=== PATIENT | female | born 1995 | race Caucasian/White ===

== ENCOUNTER → 2018-03-17 | Outpatient (CLI) | payer BC ==
--- NOTE | 2018-03-17 10:22 | CT ---
EXAMINATION TYPE: CT brain wo con DATE OF EXAM: 03/17/2018 COMPARISON: CT brain June 23, 2016 HISTORY: 2 episodes of syncope, ESPINO CT DLP: 1106 mGycm. Automated Exposure Control for Dose Reduction was Utilized. TECHNIQUE: CT scan of the head is performed without contrast. FINDINGS: There is no acute intracranial hemorrhage, mass effect, or midline shift identified. The ventricles and sulci are within normal limits in size. 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 The globes are intact and the visualized sinuses are clear. Stable slightly low position of cerebell ar tonsils without greater than 5 mm inferior displacement. IMPRESSION: No acute intracranial hemorrhage or midline shift is seen. No significant change from pr ior CT.
== END | disposition home or self-care (01) ==
LOC: RADCTMAIN 09:11
PROVIDERS: ATTEND Pediatrics
DX: R51 Headache (principal)
CPT/HCPCS: 70450

== ENCOUNTER 2021-03-23 07:53 | Observation (INO) | payer BC ==
[2021-03-23] MEDS ORDERED: SODIUM CHLORIDE 0.9% 500 ML 500 ML IV STA (08:22)
--- NOTE | 2021-03-23 08:29 | ED ---
General Adult HPI - General Chief complaint: Abdominal Pain Stated complaint: Abd Pain Time Seen by Provider: 03/23/21 08:00 Source: patient, RN notes reviewed, old records reviewed Mode of arrival: ambulatory Limitations: no limitations - History of Present Illness Initial comments: This is a 25-year-old female who presents emergency Department complaining of abdominal pain lasted 3 days. Patient states she's had no nausea no vomiting no diarrhea. Patient states she's eating normally. Patient states her last menstrual period was about a month ago and she is on contraception. Patient states the pain is in the right lower quadrant and then the mid epigastric region. Patient states often during the day shows even notice it when she stops thinks about this. Patient denies any fever or chills. Patient denies any back pain. Patient isn't dysuria hematuria urinary frequency per patient denies any chest pain difficult breathing shortest breath. Patient does have COVID vaccine. - Related Data Home Medications Medication Instructions Recorded Confirmed Ascorbic Acid [Vitamin C] 500 mg PO DAILY 03/23/21 03/23/21 Cetirizine HCl [Zyrtec] 10 mg PO DAILY 03/23/21 03/23/21 Fluticasone Nasal [place] [Flonase 1 spr EA NOSTRIL DAILY 03/23/21 03/23/21 Nasal [place]] [place] 1 tab PO DAILY 03/23/21 03/23/21 Multivitamins, Thera [Multivitamin 1 tab PO DAILY 03/23/21 03/23/21 (formulary)] Allergies Allergy/AdvReac Type Severity Reaction Status Date / Time Penicillins Allergy Unknown Verified 03/23/21 08:56 Review of Systems ROS Statement: Those systems with pertinent positive or pertinent negative responses have been documented in the HPI. ROS Other: All systems not noted in ROS Statement are negative. 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 14 History of Any Multi-Drug Resistant Organisms: None Reported Past Surgical History: Orthopedic Surgery Past Psychological History: No Psychological Hx Reported Smoking Status: Never smoker Past Alcohol Use History: None Reported Past Drug Use History: None Reported General Exam - General Exam Comments Initial Comments: GENERAL: Patient is well-developed and well-nourished. Patient is nontoxic and well-h ydrated and is in mild distress. ENT: Neck is soft and supple. No significant lymphadenopathy is noted. Oropharynx is clear. Moist mucous membranes. Neck has full range of motion without eliciting any pain. EYES: The sclera were anicteric and conjunctiva were pink and moist. Extraocular move ments were intact and pupils were equal round and reactive to light. Eyelids were unremarkable. PULMONARY: Unlabored respirations. Good breath sounds bilaterally. No audible rales rhonchi or wheezing was noted. CARDIOVASCULAR: There is a regular rate and rhythm without any murmurs gallops or rubs. ABDOMEN: Soft and nontender with normal bowel sounds. SKIN: Skin is clear with no lesions or rashes and otherwise unremarkable. NEUROLOGIC: Patient is alert and oriented x3. Cranial nerves II through XII are grossly intact. Motor and sensory are also intact. Normal speech, volume and content. Symmetrical smile. MUSCULOSKELETAL: Normal extremities with adequate strength and full range of motion. No lower extremity swelling or edema. No calf tenderness. LYMPHATICS: No significant lymphadenopathy is noted PSYCHIATRIC: Normal psychiatric evaluation. Limitations: no limitations Course Vital Signs 03/23/21 08:03 Temperature 98.1 F Pulse Rate 75 Respiratory 18 Rate Blood Pressure 144/93 O2 Sat by Pulse 100 Oximetry Medical Decision Making - Medical Decision Making An appendicolith and some thickening of the appendix with some minimal stranding could be early appendicitis. Patient still has right lower quadrant abdominal pain. I spoke with Dr. Lan he agreed to admit the patient to the patient wrote admitting orders. - Lab Data Result diagrams: 03/23/21 08:56 03/23/21 08:56 Lab Results 03/23/21 03/23/21 03/23/21 Range/Units 08:56 08:56 08:56 WBC 5.8 (3.8-10.6) k/uL RBC 4.60 (3.80-5.40) m/uL Hgb 14.5 (11.4-16.0) gm/dL Hct 39.0 (34.0-46.0) % MCV 84.7 (80.0-100.0) fL MCH 31.6 (25.0-35.0) pg MCHC 37.2 H (31.0-37.0) g/dL RDW 12.2 (11.5-15.5) % Plt Count 270 (150-450) k/uL MPV 7.1 Neutrophils % 73 % Lymphocytes % 17 % Monocytes % 6 % Eosinophils % 2 % Basophils % 0 % Neutrophils # 4.2 (1.3-7.7) k/uL Lymphocytes # 1.0 (1.0-4.8) k/uL Monocytes # 0.3 (0-1.0) k/uL Eosinophils # 0.1 (0-0.7) k/uL Basophils # 0.0 (0-0.2) k/uL Hyperchromasia Slight Sodium (137-145) mmol/L Potassium (3.5-5.1) mmol/L Chloride (98-107) mmol/L Carbon Dioxide (22-30) mmol/L Anion Gap mmol/L BUN (7-17) mg/dL Creatinine (0.52-1.04) mg/dL Est GFR (CKD-EPI)AfAm (>60 ml/min/1.73 sqM) Est GFR (CKD-EPI)NonAf (>60 ml/min/1.73 sqM) Glucose (74-99) mg/dL Calcium (8.4-10.2) mg/dL Total Bilirubin (0.2-1.3) mg/dL AST (14-36) U/L ALT (4-34) U/L Alkaline Phosphatase (38-126) U/L Total Protein (6.3-8.2) g/dL Albumin (3.5-5.0) g/dL Amylase (30-110) U/L Lipase (23-300) U/L Urine Color Colorless Urine Appearance Clear (Clear) Urine pH 6.0 (5.0-8.0) Ur Specific [place] 1.007 (1.001-1.035) Urine Protein Negative (Negative) Urine Glucose (UA) Negative (Negative) Urine Ketones Negative (Negative) Urine Blood Negative (Negative) Urine Nitrite Negative (Negative) Urine Bilirubin Negative (Negative) Urine Urobilinogen <2.0 (<2.0) mg/dL Ur Leukocyte Esterase Trace H (Negative) Urine RBC <1 (0-5) /hpf Urine WBC 2 (0-5) /hpf Ur Squamous Epith Cells 4 (0-4) /hpf Urine Bacteria Occasional H (None) /hpf Urine HCG, Qual Not Detected (Not Detectd) 03/23/21 Range/Units 08:56 WBC (3.8-10.6) k/uL RBC (3.80-5.40) m/uL Hgb (11.4-16.0) gm/dL Hct (34.0-46.0) % MCV (80.0-100.0) fL MCH (25.0-35.0) pg MCHC (31.0-37.0) g/dL RDW (11.5-15.5) % Plt Count (150-450) k/uL MPV Neutrophils % % Lymphocytes % % Monocytes % % Eosinophils % % Basophils % % Neutrophils # (1.3-7.7) k/uL Lymphocytes # (1.0-4.8) k/uL Monocytes # (0-1.0) k/uL Eosinophils # (0-0.7) k/uL Basophils # (0-0.2) k/uL Hyperchromasia Sodium 138 (137-145) mmol/L Potassium 3.8 (3.5-5.1) mmol/L Chloride 107 (98-107) mmol/L Carbon Dioxide 22 (22-30) mmol/L Anion Gap 9 mmol/L BUN 8 (7-17) mg/dL Creatinine 0.53 (0.52-1.04) mg/dL Est GFR (CKD-EPI)AfAm >90 (>60 ml/min/1.73 sqM) Est GFR (CKD-EPI)NonAf >90 (>60 ml/min/1.73 sqM) Glucose 95 (74-99) mg/dL Calcium 9.1 (8.4-10.2) mg/dL Total Bilirubin 0.3 (0.2-1.3) mg/dL AST 23 (14-36) U/L ALT 14 (4-34) U/L Alkaline Phosphatase 69 (38-126) U/L Total Protein 6.4 (6.3-8.2) g/dL Albumin 3.8 (3.5-5.0) g/dL Amylase 56 (30-110) U/L Lipase 82 (23-300) U/L Urine Color Urine Appearance (Clear) Urine pH (5.0-8.0) Ur Specific [place] (1.001-1.035) Urine Protein (Negative) Urine Glucose (UA) (Negative) Urine Ketones (Negative) Urine Blood (Negative) Urine Nitrite (Negative) Urine Bilirubin (Negative) Urine Urobilinogen (<2.0) mg/dL Ur Leukocyte Esterase (Negative) Urine RBC (0-5) /hpf Urine WBC (0-5) /hpf Ur Squamous Epith Cells (0-4) /hpf Urine Bacteria (None) /hpf Urine HCG, Qual (Not Detectd) Disposition Clinical Impression: Abdominal pain Disposition: ADMITTED IP TO THIS HOSP Referrals: Hammad Ontiveros MD [Primary Care Provider] - 1-2 days Time of Disposition: 10:26
[2021-03-23 09:10] LABS: Basophils % (A) 0 %; Eosinophils # (A) 0.1 k/uL (0-0.7); Eosinophils % (A) 2 %; HGB 14.5 gm/dL (11.4-16.0); Hyperchromasia Slight; Lymphocytes % (A) 17 %; MCH 31.6 pg (25.0-35.0); MCHC 37.2 g/dL (31.0-37.0); MCV 84.7 fL (80.0-100.0); Mean Platelet Volume 7.1; Monocytes # (A) 0.3 k/uL (0-1.0); Monocytes % (A) 6 %; Neutrophils # (A) 4.2 k/uL (1.3-7.7); Neutrophils % (A) 73 %; Platelet Count 270 k/uL (150-450); RDW 12.2 % (11.5-15.5); WBC 5.8 k/uL (3.8-10.6)
[2021-03-23 09:18] LABS: Appearance,Urine Clear (Clear); Bacteria,Urine Occasional /hpf; Bilirubin,Urine Negative (Negative); Blood,Urine Negative (Negative); Color,Urine Colorless; Glucose,Urine (UA) Negative (Negative); Ketones,Urine Negative (Negative); Leukocyte Esterase,Urine Trace (Negative); Nitrite,Urine Negative (Negative); Protein,Urine Negative (Negative); RBC,Urine <1 /hpf (0-5); Specific Gravity,Urine 1.007 (1.001-1.035); Squamous Epithelial Cell,Urine 4 /hpf (0-4); Urobilinogen,Urine <2.0 mg/dL (<2.0); WBC,Urine 2 /hpf (0-5)
[2021-03-23 09:25] LABS: ALT 14 U/L (4-34); AST 23 U/L (14-36); African American GFR (CKD) >90 (>60 ml/min/1.73 sqM); Albumin 3.8 g/dL (3.5-5.0); Alkaline Phosphatase 69 U/L (38-126); Amylase 56 U/L (30-110); Anion Gap 9 mmol/L; Blood Urea Nitrogen 8 mg/dL (7-17); Calcium 9.1 mg/dL (8.4-10.2); Carbon Dioxide 22 mmol/L (22-30); Chloride 107 mmol/L (98-107); Glucose 95 mg/dL (74-99); Lipase 82 U/L (23-300); Non-African American GFR(CKD) >90 (>60 ml/min/1.73 sqM); Potassium 3.8 mmol/L (3.5-5.1); Sodium 138 mmol/L (137-145); Total Bilirubin 0.3 mg/dL (0.2-1.3); Total Protein 6.4 g/dL (6.3-8.2)
--- NOTE | 2021-03-23 10:09 | CT ---
EXAMINATION TYPE: CT abdomen pelvis w con DATE OF EXAM: 03/23/2021 COMPARISON: NONE HISTORY: 25 year-old female right lower quadrant abdominal pain TECHNIQUE: Contiguous axial scanning of the abdomen and pelvis following administration of 100 ml Iso j luis 300 IV contrast. Delayed images through the kidneys and coronal/sagittal reconstructions perform ed. CT DLP: 776.3 mGycm Automated exposure control for dose reduction was used. FINDINGS: Heart normal size without pericardial effusion. Lung bases clear without pleural effusion. Liver mildly enlarged at 19.1 cm. No focal lesion. No biliary ductal dilatation. Portal venous system is patent. The gallbladder, adrenal glands, right kidney, and pancreas within normal limits. Spleen upper limits of normal in size at 13.3 cm measured on coronal series. Posterior splenule noted . Extrarenal pelvis left kidney but with symmetric uptake and excretion of contrast from both kidneys. Nonobstructive 4 mm left renal calculus. No dilated small bowel, free fluid, or free air. No mesenteric or retroperitoneal lymphadenopathy. There is an 8 mm distal appendicolith noted. Very mild thickening of the appendix at 7 mm but without roshni fluid distention. Minimal adjacent fat stranding versus prominent vessels may be present. Mild ly enlarged right lower quadrant mesenteric lymph nodes measuring up to 1.1 cm, refer to coronal imag e 35. Moderate fatty stool within the sigmoid colon. No pericolonic inflammatory change. Bladder urine distended. Uterus anteverted. Right ovary not well seen. Left ovary is visualized with follicular change. Trace cul-de-sac free fluid likely physiologic. No pelvic lymphadenopathy seen. Bones: No osseous destructive process. IMPRESSION: 1. EXAM EQUIVOCAL FOR MILD/EARLY ACUTE APPENDICITIS. THERE IS AN 8 MM APPENDICOLITH AND MINIMAL THICK ENING OF THE APPENDIX UP TO 7 MM BUT WITHOUT ANY FLUID DISTENTION. MINIMAL ADJACENT FAT STRANDING TAZ JEWEL PROMINENT VESSELS. PROMINENT VESSELS ARE FAVORED OVER INFLAMMATION. CLINICAL FOLLOW-UP IS RECOMME NDED. 2. THERE ARE CLUSTERED MILDLY ENLARGED RIGHT LOWER QUADRANT MESENTERIC LYMPH NODES MEASURING UP TO 1. 1 CM THAT CAN BE SEEN WITH MESENTERIC ADENITIS. 3. MILD HEPATOMEGALY AT 19.1 CM.
[2021-03-23] MEDS ORDERED: LEVOFLOXACIN 750MG-D5W PMX 750 MG in DEXTROSE/WATER 1 150ML.BAG IVPB STA (10:30)
[2021-03-23] MEDS ORDERED: SODIUM CHLORIDE 0.9% 1,000 ML IV ONE (10:35)
[2021-03-23] MEDS: metroNIDAZOLE-NS PMX 500 MG in SALINE 1 100ML.BAG IVPB SCH ×3 (12:38→23:13)
[2021-03-23] MEDS ORDERED: HYDROmorphone 0.5 MG/0.5 ML SYRINGE IVP PRN (15:16)
--- NOTE | 2021-03-23 15:17 | P.GSHP ---
History of Present Illness H&P Date: 03/23/21 CHIEF COMPLAINT: Abdominal pain HISTORY OF PRESENT ILLNESS: This is a 25-year-old female who presented to the hospital with complaints of right lower quadrant pain for the last 3 days. She reports over the weekend her pain continued to worsen. She denies any nausea or vomiting. She reports a decreased appetite. She did have 2 episodes of diarrhea. She denies any fever chills or sweats. She has been admitted to the hospital for acute appendicitis. PAST MEDICAL HISTORY: See list. PAST SURGICAL HISTORY: See list. MEDICATIONS: See list. ALLERGIES: See list. SOCIAL HISTORY: No illicit drug use. REVIEW OF SYSTEMS: CONSTITUTIONAL: Denies fever or chills. HEENT: Denies blurred vision, vision changes, or eye pain. Denies hemoptysis CARDIOVASCULAR: Denies chest pain or pressure. RESPIRATORY: No shortness of breath. GASTROINTESTINAL: See HPI for pertinent findings HEMATOLOGIC: Denies bleeding disorders. GENITOURINARY: Denies any blood in urine or increased urinary frequency. SKIN: Denies pruitis. Denies rash. PHYSICAL EXAM: VITAL SIGNS: Reviewed GENERAL: Well-developed in no acute distress. HEENT: No sclera icterus. Extraocular movements grossly intact. Moist buccal mucosa. Head is atraumatic, normocephalic. No nasal drainage. ABDOMEN: Soft. Nondistended. Right lower quadrant tenderness with palpation NEUROLOGIC: Alert and oriented. Cranial nerves II through XII grossly intact. LABORATORY DATA: WBC 5.8 hemoglobin 14.5 platelets 270 Sodium is 138 potassium 3.8 creatinine 0.53 LFTs normal Urinalysis negative for infection COVID-19 undetected IMAGING: Computed tomography scan abdomen and pelvis showing exam equivocal for mild/early acute appendicitis. There is an 8 mm appendix cough and minimal thickening of the appendix up to 7 mm but without any fluid distention. Minimal adjacent fat stranding versus prominent vessels. Prominent vessels are favored over inflammation. There are clustered mildly enlarged right lower quadrant mesenteric lymph nodes measuring up to 1.1 cm they can be seen with mesenteric adenitis. Mild hepatomegaly at 19.1 cm ASSESSMENT: 1. Acute appendicitis PLAN: -Patient scheduled for laparoscopic appendectomy with Dr. flores tomorrow 03/24/2021 -Patient can have clear liquids today and then nothing by mouth after midnight -Continue IV fluids -Continue IV antibiotics -Continue pain medication as needed -GI Prophylaxis Protonix and DVT prophylaxis subcu heparin Physician Emergency Vehicle Operator note has been reviewed by physician. Signing provider agrees with the documented findings, assessment, and plan of care. 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 14 History of Any Multi-Drug Resistant Organisms: None Reported Past Surgical History: Orthopedic Surgery Past Psychological History: No Psychological Hx Reported Smoking Status: Never smoker Past Alcohol Use History: None Reported Past Drug Use History: None Reported Medications and Allergies Home Medications Medication Instructions Recorded Confirmed Type Ascorbic Acid [Vitamin C] 500 mg PO DAILY 03/23/21 03/23/21 History Cetirizine HCl [Zyrtec] 10 mg PO DAILY 03/23/21 03/23/21 History Fluticasone Nasal [place] [Flonase 1 spr EA NOSTRIL DAILY 03/23/21 03/23/21 History Nasal [place]] [place] 1 tab PO DAILY 03/23/21 03/23/21 History Multivitamins, Thera [Multivitamin 1 tab PO DAILY 03/23/21 03/23/21 History (formulary)] Allergies Allergy/AdvReac Type Severity Reaction Status Date / Time Penicillins Allergy Unknown Verified 03/23/21 08:56 Surgical - Exam Vital Signs Temp Pulse Resp BP Pulse Ox 98.1 F 75 18 144/93 100 03/23/21 08:03 03/23/21 08:03 03/23/21 08:03 03/23/21 08:03 03/23/21 08:03 Results - Labs 03/23/21 08:56 03/23/21 08:56 Abnormal Lab Results - Last 24 Hours (Table) 03/23/21 03/23/21 Range/Units 08:56 08:56 MCHC 37.2 H (31.0-37.0) g/dL Ur Leukocyte Esterase Trace H (Negative) Urine Bacteria Occasional H (None) /hpf Diabetes panel 03/23/21 Range/Units 08:56 Sodium 138 (137-145) mmol/L Potassium 3.8 (3.5-5.1) mmol/L Chloride 107 (98-107) mmol/L Carbon Dioxide 22 (22-30) mmol/L BUN 8 (7-17) mg/dL Creatinine 0.53 (0.52-1.04) mg/dL Glucose 95 (74-99) mg/dL Calcium 9.1 (8.4-10.2) mg/dL AST 23 (14-36) U/L ALT 14 (4-34) U/L Alkaline Phosphatase 69 (38-126) U/L Total Protein 6.4 (6.3-8.2) g/dL Albumin 3.8 (3.5-5.0) g/dL Calcium panel 03/23/21 Range/Units 08:56 Calcium 9.1 (8.4-10.2) mg/dL Albumin 3.8 (3.5-5.0) g/dL Pituitary panel 03/23/21 Range/Units 08:56 Sodium 138 (137-145) mmol/L Potassium 3.8 (3.5-5.1) mmol/L Chloride 107 (98-107) mmol/L Carbon Dioxide 22 (22-30) mmol/L BUN 8 (7-17) mg/dL Creatinine 0.53 (0.52-1.04) mg/dL Glucose 95 (74-99) mg/dL Calcium 9.1 (8.4-10.2) mg/dL Adrenal panel 03/23/21 Range/Units 08:56 Sodium 138 (137-145) mmol/L Potassium 3.8 (3.5-5.1) mmol/L Chloride 107 (98-107) mmol/L Carbon Dioxide 22 (22-30) mmol/L BUN 8 (7-17) mg/dL Creatinine 0.53 (0.52-1.04) mg/dL Glucose 95 (74-99) mg/dL Calcium 9.1 (8.4-10.2) mg/dL Total Bilirubin 0.3 (0.2-1.3) mg/dL AST 23 (14-36) U/L ALT 14 (4-34) U/L Alkaline Phosphatase 69 (38-126) U/L Total Protein 6.4 (6.3-8.2) g/dL Albumin 3.8 (3.5-5.0) g/dL
[2021-03-23] MEDS: PANTOPRAZOLE 40 MG TABLET PO SCH (18:47)
[2021-03-23] MEDS: HEPARIN SODIUM,PORCINE/PF 5,000 UNIT/0.5 ML SYRINGE SQ SCH (20:16)
[2021-03-24] MEDS: metroNIDAZOLE-NS PMX 500 MG in SALINE 1 100ML.BAG IVPB SCH ×3 (05:12→19:16)
[2021-03-24 06:05] LABS: Basophils % (A) 0 %; Eosinophils # (A) 0.1 k/uL (0-0.7); Eosinophils % (A) 3 %; HCT 37.4 % (34.0-46.0); Lymphocytes # (A) 1.4 k/uL (1.0-4.8); Lymphocytes % (A) 45 %; MCH 30.6 pg (25.0-35.0); MCHC 34.7 g/dL (31.0-37.0); MCV 88.3 fL (80.0-100.0); Mean Platelet Volume 7.2; Monocytes # (A) 0.2 k/uL (0-1.0); Monocytes % (A) 8 %; Neutrophils # (A) 1.3 k/uL (1.3-7.7); Neutrophils % (A) 41 %; Platelet Count 229 k/uL (150-450); RBC 4.24 m/uL (3.80-5.40); RDW 11.7 % (11.5-15.5); WBC 3.1 k/uL (3.8-10.6)
[2021-03-24 06:16] LABS: African American GFR (CKD) >90 (>60 ml/min/1.73 sqM); Anion Gap 5 mmol/L; Blood Urea Nitrogen 4 mg/dL (7-17); Calcium 8.7 mg/dL (8.4-10.2); Carbon Dioxide 25 mmol/L (22-30); Chloride 107 mmol/L (98-107); Glucose 86 mg/dL (74-99); Non-African American GFR(CKD) >90 (>60 ml/min/1.73 sqM); Potassium 3.6 mmol/L (3.5-5.1); Sodium 137 mmol/L (137-145)
[2021-03-24] MEDS: PANTOPRAZOLE 40 MG TABLET PO SCH (07:38)
[2021-03-24] MEDS ORDERED: SODIUM CHLORIDE 0.9% 1,000 ML IV ONE ×2 (08:20)
[2021-03-24] MEDS: HEPARIN SODIUM,PORCINE/PF 5,000 UNIT/0.5 ML SYRINGE SQ SCH ×3 (08:39→22:33)
[2021-03-24] MEDS: ONDANSETRON 4 MG/2 ML VIAL IVP PRN ×2 (08:42→16:46)
[2021-03-24] MEDS ORDERED: DEXAMETHASONE SOD PHOSPHATE 4 MG/ML 1 ML VIAL IVP ONE (08:43)
--- NOTE | 2021-03-24 09:52 | P.PN ---
Progress Note - Text Progress Note Date: 03/24/21 Patient still has right lower quadrant pain. She'll undergo laparoscopic appendectomy today.
[2021-03-24] MEDS ORDERED: MIDAZOLAM 2 MG/2 ML VIAL ONE (10:20)
[2021-03-24] MEDS ORDERED: NEOSTIGMINE 1 MG/ML 10 ML VIAL ONE (10:20)
[2021-03-24] MEDS ORDERED: fentaNYL (PF) 50 MCG/ML 2 ML AMP ONE (10:20)
[2021-03-24] MEDS ORDERED: LIDOCAINE 1% INJ 10MG/ML (20 ML MDV) ONE (10:20)
[2021-03-24] MEDS ORDERED: HYDROmorphone (PF) 1 MG/ML ONE (10:20)
[2021-03-24] MEDS: LEVOFLOXACIN 500MG-D5W PMX 500 MG in DEXTROSE/WATER 1 100ML.BAG IVPB SCH (10:20)
[2021-03-24] MEDS ORDERED: ROCURONIUM 10 MG/ML (5 ML VIAL) IV ONE (10:20)
[2021-03-24] MEDS ORDERED: GLYCOPYRROLATE 0.2 MG/ML 2 ML VIAL ONE (10:20)
[2021-03-24] MEDS ORDERED: SUCCINYLCHOLINE CHLORIDE 100 MG/5 ML SYR IV ONE (10:20)
[2021-03-24] MEDS ORDERED: PROPOFOL 10 MG/ML 20 ML VIAL IV ONE (10:20)
[2021-03-24] MEDS ORDERED: KETOROLAC 15 MG/ML 1 ML VIAL ONE (10:20)
[2021-03-24] MEDS ORDERED: BUPIVACAINE (PF) 0.25% 30 ML VIAL SQ ONE ×3 (10:36→10:39)
--- NOTE | 2021-03-24 10:57 | P.OP ---
Date of Procedure: 03/24/21 Preoperative Diagnosis: Acute appendicitis Postoperative Diagnosis: Acute appendicitis Procedure(s) Performed: Laparoscopic appendectomy Anesthesia: SUSANNE Surgeon: Dilan Hyatt Estimated Blood Loss (ml): 5 Pathology: other (Appendix) Condition: stable Disposition: PACU Description of Procedure: The patient's placed on the operating table in the supine position. The patient received general anesthesia. The abdomen was prepped and draped in the usual sterile fashion. The skin was anesthetized 1% local Xylocaine at the trocar sites. Using an 11 blade the skin was incised at the umbilicus. The umbilicus was grasped with a [place] clamp and then a Veress needle was placed into the peritoneal cavity. Position of the Veress needle was confirmed with positive drop test. After adequate insufflation a 5 mm trocar was placed into the peritoneal cavity. The abdomen was further insufflated. And then the laparoscope was placed in the peritoneal cavity. Next a 5 mm trocar was placed in the midline suprapubic position. And then a 10 mm trocar was placed in the midline epigastric position. The patient was rotated with the right side up and in Trendelenburg. The appendix was visualized. The appendix appeared to be inflamed. The appendix was grasped and then using the Harmonic scissors the mesoappendix was divided. A PDS Endoloop was then placed around the base of the appendix. And then the appendix was divided using Harmonic scissors. The appendix was placed into an Endo Catch and brought out through the 10 mm trocar site. The abdomen was irrigated. There is no bleeding seen. The trochars withdrawn. The skin was closed interrupted 3-0 Monocryl suture. Dermabond dressing was applied. Patient was sent to recovery room in stable condition.
[2021-03-24] MEDS: METOCLOPRAMIDE 5 MG/ML 2 ML VIAL IVP PRN (19:35)
[2021-03-25] MEDS: SODIUM CHLORIDE 0.9% 1,000 ML IV SCH ×2 (00:37→17:00)
[2021-03-25] MEDS: metroNIDAZOLE-NS PMX 500 MG in SALINE 1 100ML.BAG IVPB SCH ×3 (00:37→12:07)
[2021-03-25] MEDS: HYDROcodone/APAP 5-325MG 1 EACH TAB PO PRN ×2 (03:17→10:16)
[2021-03-25] MEDS: PANTOPRAZOLE 40 MG TABLET PO SCH (07:44)
[2021-03-25] MEDS ORDERED: ENOXAPARIN 40 MG/0.4 ML SYRINGE SQ SCH (09:00)
[2021-03-25] MEDS ORDERED: FLUTICASONE 50MCG/SPRAY NASAL 16GM EA NOSTRIL SCH ×2 (09:00)
[2021-03-25] MEDS ORDERED: CETIRIZINE 10 MG TABLET PO SCH (09:00)
[2021-03-25] MEDS ORDERED: LORATADINE 10 MG TAB PO SCH (09:00)
[2021-03-25] MEDS: LEVOFLOXACIN 500MG-D5W PMX 500 MG in DEXTROSE/WATER 1 100ML.BAG IVPB SCH (10:16)
--- NOTE | 2021-03-25 11:07 | P.DS ---
Providers Date of admission: 03/23/21 10:35 Expected date of discharge: 03/25/21 Attending physician: Dilan Hyatt Primary care physician: Hammad Ontiveros Hospital Course: Discharge diagnosis 1. Acute appendicitis status post laparoscopic appendectomy Hospital course This is a 25-year-old female who presented to the hospital with complaints of right lower quadrant pain for the last 3 days. She reports over the weekend her pain continued to worsen. She denies any nausea or vomiting. She reports a decreased appetite. She did have 2 episodes of diarrhea. She denies any fever chills or sweats. Computed tomography scan abdomen and pelvis showing exam equivocal for mild/early acute appendicitis. There is an 8 mm appendix cough and minimal thickening of the appendix up to 7 mm but without any fluid distention. Minimal adjacent fat stranding versus prominent vessels. Prominent vessels are favored over inflammation. There are clustered mildly enlarged right lower quadrant mesenteric lymph nodes measuring up to 1.1 cm they can be seen with mesenteric adenitis. Mild hepatomegaly at 19.1 cm. She has been admitted to the hospital for acute appendicitis. Patient is status post laparoscopic appendectomy. She tolerated surgery well. Her pain is controlled. She is tolerating diet. She has been up and ambulating. She's afebrile. She is stable for discharge. Please refer to chart for any further details. Physician Ethyl Blender note has been reviewed by physician. Signing provider agrees with the documented findings, assessment, and plan of care. Patient Condition at Discharge: Stable Plan - Discharge Summary Discharge Rx Participant: Yes New Discharge Prescriptions: New Docusate [Colace] 100 mg PO BID #30 cap Levofloxacin [Levaquin] 500 mg PO DAILY #7 tab HYDROcodone/APAP 5-325MG [[place] 5-325] 1 tab PO Q6HR PRN 3 Days #12 tab PRN Reason: Pain Continue Multivitamins, Thera [Multivitamin (formulary)] 1 tab PO DAILY Cetirizine HCl [Zyrtec] 10 mg PO DAILY Ascorbic Acid [Vitamin C] 500 mg PO DAILY Fluticasone Nasal [place] [Flonase Nasal [place]] 1 spr EA NOSTRIL DAILY [place] 1 tab PO DAILY Discharge Medication List Ascorbic Acid [Vitamin C] 500 mg PO DAILY 03/23/21 [History] Cetirizine HCl [Zyrtec] 10 mg PO DAILY 03/23/21 [History] Fluticasone Nasal [place] [Flonase Nasal [place]] 1 spr EA NOSTRIL DAILY 03/23/21 [History] [place] 1 tab PO DAILY 03/23/21 [History] Multivitamins, Thera [Multivitamin (formulary)] 1 tab PO DAILY 03/23/21 [History] Docusate [Colace] 100 mg PO BID #30 cap 03/25/21 [Rx] HYDROcodone/APAP 5-325MG [[place] 5-325] 1 tab PO Q6HR PRN 3 Days #12 tab 03/25/21 [Rx] Levofloxacin [Levaquin] 500 mg PO DAILY #7 tab 03/25/21 [Rx] Follow up Appointment(s)/Referral(s): Hammad Ontiveros MD [Primary Care Provider] - 1-2 days Dilan Hyatt MD [STAFF PHYSICIAN] - 1 Week Activity/Diet/Wound Care/Special Instructions: No driving while taking [place] No lifting over 10 pounds You may shower. No soaking or tub baths for 2 weeks Very light activity until you are reevaluated at your follow up appointment with your surgeon Discharge Disposition: HOME SELF-CARE
[2021-03-25] MEDS: METOCLOPRAMIDE 5 MG/ML 2 ML VIAL IVP PRN (12:01)
[2021-03-25 12:53] LABS: Basophils % (A) 0 %; Eosinophils % (A) 1 %; HCT 34.7 % (34.0-46.0); HGB 12.3 gm/dL (11.4-16.0); Lymphocytes # (A) 1.3 k/uL (1.0-4.8); Lymphocytes % (A) 30 %; MCH 31.2 pg (25.0-35.0); MCHC 35.4 g/dL (31.0-37.0); MCV 88.1 fL (80.0-100.0); Mean Platelet Volume 7.6; Monocytes # (A) 0.2 k/uL (0-1.0); Monocytes % (A) 5 %; Neutrophils # (A) 2.7 k/uL (1.3-7.7); Neutrophils % (A) 62 %; Platelet Count 207 k/uL (150-450); RBC 3.94 m/uL (3.80-5.40); RDW 11.5 % (11.5-15.5); WBC 4.4 k/uL (3.8-10.6)
[2021-03-25 13:09] LABS: African American GFR (CKD) >90 (>60 ml/min/1.73 sqM); Anion Gap 7 mmol/L; Blood Urea Nitrogen 6 mg/dL (7-17); Calcium 8.5 mg/dL (8.4-10.2); Carbon Dioxide 23 mmol/L (22-30); Chloride 107 mmol/L (98-107); Glucose 106 mg/dL (74-99); Magnesium 1.7 mg/dL (1.6-2.3); Non-African American GFR(CKD) >90 (>60 ml/min/1.73 sqM); Potassium 3.5 mmol/L (3.5-5.1); Sodium 137 mmol/L (137-145)
[2021-03-25 15:07] VITALS: BP 110/74; PULSE 62; RESP 16; TEMP 97.8
[2021-03-25] MEDS ORDERED: ACETAMINOPHEN TAB 325 MG TAB PO PRN (15:29)
[2021-03-25] MEDS ORDERED: MAGNESIUM SULFATE-D5W PMX 1 GM in DEXTROSE/WATER 1 100ML.BAG IVPB ONE (15:32)
[2021-03-25] MEDS ORDERED: metroNIDAZOLE 500 MG TAB PO SCH (18:00)
[2021-03-25] MEDS ORDERED: SIMETHICONE 40 MG/0.6 ML DROPS 2,000 MG/30 ML BOTTLE PO SCH (18:00)
[2021-03-25] MEDS ORDERED: DOCUSATE 100 MG CAP PO SCH (21:00)
[2021-03-26] MEDS ORDERED: LEVOFLOXACIN 500 MG TAB PO SCH (09:00)
== END 2021-03-25 19:09 | disposition home or self-care (01) ==
LOC: EC 07:53 → 6PED 10:35
PROVIDERS: ADMIT Surgery; ATTEND Surgery
DX: K35.80 Unspecified acute appendicitis (principal); M19.90 Unspecified osteoarthritis, unspecified site; Z20.822 Contact with and (suspected) exposure to COVID-19; Z98.890 Other specified postprocedural states; Z79.3 Long term (current) use of hormonal contraceptives; Z79.899 Other long term (current) drug therapy; Z88.0 Allergy status to penicillin; J30.2 Other seasonal allergic rhinitis
CPT/HCPCS: 44970; 96361; 96365; 96367; 99285; 36415; 81025 ×2; 88304; 80053; 80048 ×2; 82150; 83690; 83735; 85025 ×3; 81001; 87635; 74177; G0378 ×3; J2250; J1100; J2710; J2765 ×2; J2405; J1956 ×3; J2001; J1650; J3010; J1170; J3475; J1885; J0330; J2704; Q9967; J1644 ×2